=== PATIENT | female | born 1960 | race Two or more races ===

== ENCOUNTER 2018-06-17 08:04 | Day surgery (SDC) | payer OTHER ==
[~2018-06-17] VITALS: Ht 170.2 cm; Wt 77.1 kg
[2018-06-17] VITALS (11 sets, daily range): BP systolic 125–148; BP diastolic 71–85
--- NOTE | 2018-06-17 08:05 | Short Stay Surgery H&P ---
History of Present Illness History of Present Illness Chief Complaint Abdominal pains/GERDs and dysphagia KEISHA Flores is a 57 year old female who was admitted on for abdominalpains/ GERds and dysphagia Patient History Allergies: Uncoded Allergies: penicilline (Allergy, 06/17/18) peniciloine Review of Systems Cardiovascular: Reports: no symptoms Respiratory: Reports: no symptoms Skeletal: Reports: trauma Gastrointestinal: Reports: gastro esophageal reflux disease Genitourinary: Reports: no symptoms Neurologic: Reports: no symptoms Endocrine: Reports: no symptoms Hematologic: Reports: no symptoms Physical Exam Skin: normal HENT: normal Heart: normal Lungs: normal Abdomen: abnormal Extremities: normal Genitourinary: normal Plan Plan of Care Upper Gi. endoscopy with biopsy Preop Interventions None. Summary of Findings See the reports Attestation Are the patient's medical conditions optimized for surgery? Attestation Response: yes Lizandro Perales MD Jun 17, 2018 08:05
--- NOTE | 2018-06-17 08:06 | Anethesia Preoperative Eval ---
Anesthesia Pre-op PMH/ROS General Date of Evaluation: Jun 17, 2018 Time of Evaluation: 07:55 Anesthesiologist: Mandi ASA Score: ASA 1 Mallampati Score Class I : Soft palate, uvula, fauces, pillars visible Class II: Soft palate, uvula, fauces visible Class III: Soft palate, base of uvula visible Class IV: Only hard plate visible Mallampati Classification: Class II Surgeon: Diaz Diagnosis: GERD, dysphagia Surgical Procedure: EGD Anesthesia History: none Family History: no anesthesia problems Allergies: Coded Allergies: PENICILLINS (Verified Allergy, Severe, 06/17/18) THROAT SWELLS UP Medications: see eMAR Patient NPO?: Yes NPO Date: Jun 16, 2018 NPO Time: 20:00 Past Medical History Cardiovascular: Reports: HTN Pulmonary: Denies: asthma, COPD, HELIO, other Gastrointestinal/Genitourinary: Reports: GERD, other - gastritis, dysphagia Endocrine: Denies: DM, hypothyroidism, steroids, other HEENT: Reports: other - headaches Hematology/Immune: Denies: anemia, DVT, bleeding disorder, other Musculoskeletal/Integumentary: Reports: other - hx of fall - right shoulder and right wrist pain Anesthesia Pre-op Phys. Exam Physician Exam Constitutional: NAD Neurologic: CN 2-12 intact Cardiovascular: RRR Respiratory: CTA Gastrointestinal: S/NT/ND Airway Exam Mallampati Score: Class II MO: full ROM: full Teeth: intact Dentures: no upper, no lower Anesthesia Pre-op A/P Risk Assessment & Plan Assessment: A&Ox4 Plan: MAC Status Change Before Surgery: Martha Casper CRNA Jun 17, 2018 08:06
--- NOTE | 2018-06-17 08:07 | 48 Hour Post Anesthesia Eval ---
Post Anesthesia Evaluation Procedure: EGD Date of Evaluation: Jun 17, 2018 Time of Evaluation: 10:59 Blood Pressure Systolic: 139 0: 84 Pulse Rate: 61 Respiratory Rate: 18 Temperature (Fahrenheit): 97.2 O2 Sat by Pulse Oximetry: 99 Airway: patent Nausea: No Vomiting: No Pain Intensity: 0 Hydration Status: adequate Cardiopulmonary Status: WNL Mental Status/LOC: patient returned to baseline Follow-up care needed: patient intructions given Martha Raymond CRNA Jun 17, 2018 08:07
--- NOTE | 2018-06-17 08:07 | Immediate Post-Op Evaluation ---
Immediate Post-Op Evalulation Immediate Post-Op Evalulation Procedure: EGD Date of Evaluation: Jun 17, 2018 Time of Evaluation: 09:08 IV Fluids: NSS 300ml Blood Products: 0 Estimated Blood Loss: 0 Urinary Output: 0 Blood Pressure Systolic: 141 Blood Pressure Diastolic: 78 Pulse Rate: 66 Respiratory Rate: 15 O2 Sat by Pulse Oximetry: 100 Temperature (Fahrenheit): 97.1 Pain Score (1-10): 0 Nausea: No Vomiting: No Complications none noted Patient Status: awake, reacts Hydration Status: adequate Given Within 1 Hr of Incision: No - none per surgeon Martha Raymond CRNA Jun 17, 2018 08:07
--- NOTE | 2018-06-17 08:07 | Pre-Procedure Note/Attestation ---
Pre-Procedure Note/Attestation Complete Prior to Procedure Planned Procedure: left Procedure Narrative: Examination of the upper GI. tract via endoscopy Indications for Procedure Pre-Operative Diagnosis: R/O Peptic ulcer/gastritis/esophagitis. 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 I attest that, if there was a reasonable possibility of needing a blood transfusion, the patient (or the patient's legal sales representative aircraft) was given the [place] Department [employer] standardized written summary, pursuant to the [employer] Blood Safety Act ([place] Health and Safety Code # 1645, as amended). I attest that I re-evaluated the patient just prior to the surgery and that there has been no change in the patient's H&P, except as documented below: Lizandro Perales MD Jun 17, 2018 08:07
[2018-06-17] MEDS ORDERED: RANITIDINE HCL150 MG ORAL (08:40)
[2018-06-17] MEDS ORDERED: LISINOPRIL-HCT1 EACH ORAL (08:40)
[2018-06-17] MEDS ORDERED: OMEPRAZOLE40 M1 ORAL (08:40)
--- NOTE | 2018-06-17 09:06 | Endoscopy Procedure Note ---
Endoscopy Procedure Note General Indication for Procedure: Abdominal pains/GERDs and dysphagia Procedures Performed: EGD - Mild genralized gastritis, biopsies obtained from mid gastric body and antrum per random. Specimen: yes Pt Tolerated Procedure Well: Yes Estimated Blood Loss: none Anesthesia Anesthesiologist: Ms. Martha Raymond CRNA Anesthesia: moderate sedation Medications Medication Given: see anesthesia record Inserted Devices Implant(s) used?: No Quality Quality of Bowel Preparation: Excellent Was there any complications?: No GI Core Measures 50 yrs or older w/o bx or poly: Not Applicable 10yrs. F/U not recommended: Not Applicable If not recommended, why?: Med reason:<3 yrs.: Lizandro Perales MD Jun 17, 2018 09:06
--- NOTE | 2018-06-17 09:07 | Discharge Instructions ---
Discharge Instructions Discharge Instructions Follow up with: visit the doctor after 2 weeks in his office For Congestive Heart Failure Reminder Report to your physician any weight gain of 5 pounds or more in one week. Lizandro Perales MD Jun 17, 2018 09:07
--- NOTE | 2018-06-17 09:15 | Pre-op HX & Phy Repo 2 SIG ---
DATE OF ADMISSION: 06/17/2018 HISTORY OF PRESENT ILLNESS: The patient is a 57-year-old female, who is being seen prior to undergoing the procedure of upper GI endoscopy for which she has been scheduled to receive for evaluation of gastrointestinal symptoms and conditions that she has been complaining of. The patient was examined by me approximately a month ago, and at this point she was complaining of having pressure over the upper part of the abdomen, especially in the epigastric area along with symptoms of the gastroesophageal reflux and difficulty swallowing. She was also reporting that these pains are radiating towards her chest area. This time, also when I examined her today, she is also complaining of similar symptoms, though she has been receiving multiple medications including Zantac and other PPIs such as omeprazole, etc. She has also been using anti-acids as well. 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 Subsequent to this situation, as she was taking all these medications, she started to experience the above GI symptoms as I mentioned. At this time, she denies having any history of bleeding such as hematemesis, melena, or hematochezia. She reports to me that she is occasionally taking Advil for pain that she still has. She has also had some elements of constipation, but they are not severe. PAST MEDICAL HISTORY: Basically nonsignificant. She denies having any major diabetes in the past by the report of some other physicians. She has had history of hypertension, but currently she is not taking any medications in this regard. There is no history of arthritis. PAST SURGICAL HISTORY: Surgeries, none. CHILDHOOD DISEASES: None. ALLERGIES: Penicillin. FAMILY HISTORY: Nonsignificant. CURRENT MEDICATIONS: Currently are anti-acids and omeprazole. PHYSICAL EXAMINATION: GENERAL: At this time reveals alert, well-oriented female, who does not seem to be in any acute distress. VITAL SIGNS: Stable. HEENT: Normocephalic. Pupils are equal in size and reactive to light and accommodation. No jaundice. Buccal cavity, tongue midline, well hydrated. No ulcers. NECK: Supple. No JVD, thyromegaly, or adenopathy. CHEST: Clear to auscultation and percussion. No rales or rhonchi. HEART: S1, S2 normal. Regular rhythm. No gallops or murmur. ABDOMEN: Soft, but there are areas of tenderness over the upper part of the abdomen, but there is no hepatosplenomegaly. No palpable mass. EXTREMITIES: No pretibial edema, cyanosis, or clubbing. SKIN AND LYMPHATICS: Nonsignificant. NEUROLOGICAL: Nonsignificant. INITIAL PREOPERATIVE IMPRESSION: 1. Epigastric pain of uncertain etiology, rule out gastroesophageal reflux, esophageal spasm versus esophagitis; rule out duodenal ulcer, gastric ulcer, NSAID-induced gastropathy. 2. Dysphagia, possibly related to NSAID-induced esophagitis versus esophageal spasm. RECOMMENDATION: The patient at this time is stable to undergo the procedure for upper GI endoscopy for which she has been scheduled. She understands the risks and benefits and will sign the consent for this procedure. Said Dayanara Perales DR: SHAN JOB#: [id number] CC:
--- NOTE | 2018-06-17 11:30 | Operative Note - Dictated ---
DATE OF OPERATION: 06/17/2018 SURGEON: Lizandro Perales M.D. PROCEDURE: Esophagogastroduodenoscopy with biopsy. PREOPERATIVE DIAGNOSES: Abdominal pain, history of dysphagia, chronic gastroesophageal reflux symptoms. POSTOPERATIVE DIAGNOSIS: Mild generalized gastritis, two random biopsies were taken from the antrum and mid body of the stomach. MEDICATION USED: Per Mandi [employer]. INSTRUMENT: GIF Olympus upper GI video endoscope. DESCRIPTION OF PROCEDURE: The patient after arriving endoscopy unit, was told about risks and benefits of the procedure, which she accepted and then signed informed consent. She was then put on the left lateral decubitus position. After adequate IV sedation, the scope was gently passed through the cricopharyngeal area, was lodged into the upper esophagus and gradually advanced towards gastroesophageal junction. The entire length of the esophagus looked normal. There was no any evidence of pathology such as exudative process, ulcers, tumors, polyps, stricture, etc. GE junction also looked normal without any Altman's or hiatal hernia. At this time, the scope was advanced into the stomach, gastric cavity was distended with insufflation of air and gradually the areas of the fundus and the body and the antrum were examined. The areas of the mid body and antrum mucosa revealed evidence of some erythema, which was mild consistent with gastritis mostly. There was no polyps, tumors, ulcers, bleeding sites, etc. A retroflexion maneuver was also applied. The area of the gastroesophageal junction was examined in a closer fashion, which revealed no other abnormalities except what is stated. Finally, the scope was gradually advanced towards the body and the antral area, which revealed more erythema of the tissues, however, again no other pathologies except evidence of gastritis was noted. At this time, one random biopsy from gastric body and the other one from the antral area was obtained and subsequently, the scope was passed through normal looking pylorus and the first and second portion of duodenum looked completely normal. At this time, the scope was pulled out and the procedure was terminated. The patient tolerated the procedure well and left the endoscopy room in a good condition. Lizandro Perales M.D. DR: /EMELYN JOB#: [id number] CC:
== END 2018-06-17 10:15 | disposition home or self-care (01) ==
LOC: SUR 08:04
DX: K29.50 Unspecified chronic gastritis without bleeding (principal); K21.9 Gastro-esophageal reflux disease without esophagitis; I10 Essential (primary) hypertension; Z87.19 Personal history of other diseases of the digestive system
CPT/HCPCS: 94003; 94150